=== PATIENT | male | born 1980 ===

== ENCOUNTER 2023-04-28 06:04 | Day surgery (SDC) | payer OTHER, SELFPAY ==
--- NOTE | 2023-04-06 12:02 | CM ---
Patient is scheduled for cervical spine surgery on 04/28/23. Spoke with patient prior to surgery via telephone. Introduced role of the Orthopedic Navigator. Patient reports that he lives with his and three children in a two story home. There are
two steps to enter and a flight of steps to the second floor. He currently functions independently. He has no DME and has never had VN services. PCP is Ifeanyi Marie.
Discussed orthopedic program, post surgical plans and tentative plan for patient to return home when directed by surgeon. Patient is in agreement with tentative plan and will have support from his (his works from home) when he goes home.
Plan: Orthopedic Navigator will remain available to assist with the care of patient and will reassess discharge needs after surgery.
[2023-04-09 08:11] VITALS: BMI 29.5
[2023-04-09 08:59] LABS: Hematocrit 40.9 % (39.0-52.0); Hemoglobin 13.8 g/dL (13.0-18.0); Mean Corp Hgb Conc. 33.7 g/dL (33.0-37.0); Mean Corpuscular Hgb 31.2 pg (27.0-31.0); Mean Corpuscular Volume 92.5 fL (80.0-94.0); Mean Platelet Volume 9.1 fL (7.4-10.4); Platelet Count 253 10^3/uL (130-400); Red Blood Cell Count 4.42 10^6/uL (4.70-6.10); Red Cell Dist. Width 12.4 % (11.5-14.5); White Blood Cell Count 10.3 10^3/uL (4.8-10.8)
[2023-04-09 09:21] LABS: ALT (SGPT) 19 U/L (0-50); AST (SGOT) 31 U/L (17-59); Albumin 4.1 g/dl (3.5-5.0); Alkaline Phosphatase 71 U/L (38-126); Blood Urea Nitrogen 20 mg/dl (9-20); Calcium 9.1 mg/dl (8.4-10.2); Carbon Dioxide 29 mmol/L (22-30); Chloride 102 mmol/L (98-107); Estimated Creatinine Clearance 58 ml/min; Glucose 77 mg/dl (70-99); Potassium 4.4 mmol/L (3.5-5.1); Sodium 138 mmol/L (135-145); Total Bilirubin 0.5 mg/dl (0.2-1.3); Total Protein 6.7 g/dl (6.3-8.2); eGFR 55.17
[2023-04-09 15:23] VITALS: BMI 29.5
[2023-04-28] VITALS (10 sets, daily range): BP systolic 126–149; BP diastolic 78–91
[2023-04-28] MEDS: SKELAXIN 800 MG PO (06:24)
[2023-04-28] MEDS: TYLENOL 1000 MG PO (06:24)
[2023-04-28] MEDS: LYRICA 150 MG PO (06:24)
[2023-04-28] MEDS: CELEBREX 200 MG PO (06:24)
[2023-04-28] MEDS: NORMOSOL-R 1000 IV (06:35)
[2023-04-28] MEDS: DILAUDID 0.5 MG IV (09:42)
[2023-04-28] MEDS: DILAUDID 0.25 MG IV (10:05)
[2023-04-28] MEDS: ULTRAM 50 MG PO (10:49)
== END 2023-04-28 11:35 | disposition home or self-care (01) ==
LOC: SDS 06:04
PROVIDERS: ATTENDING PHYSICIAN Orthopaedic Surgery Orthopaedic Surgery of the Spine; FAMILY PHYSICIAN Family Medicine; REFERRING PHYSICIAN Physician Assistant Medical
DX: M48.02 Spinal stenosis, cervical region (principal); N28.9 Disorder of kidney and ureter, unspecified; Z87.39 Personal history of other diseases of the musculoskeletal system and connective tissue; Z98.890 Other specified postprocedural states
CPT/HCPCS: 22551; 22552; 22845; 20930; C1713; 36415; 72020; 80053; 85027; 87070; C1776